=== PATIENT | female | born 1975 | race Caucasian/White ===

== ENCOUNTER 2017-02-27 07:03 | Inpatient (IN) | payer OTHER ==
[2017-02-27] MEDS ORDERED: Oxytocin in LR* 20 UNITS/1,000 ML BAG IVPB SCH ×2 (08:00→19:00)
[2017-02-27] MEDS ORDERED: Lidocaine 1% MPF* 2 ML VIAL ONE (08:10)
[2017-02-27] MEDS: Labetalol TAB* 200 MG PO SCH ×2 (08:21→21:10)
[2017-02-27 08:55] LABS: Hematocrit 36 % (35-47); Hemoglobin 11.9 g/dl (12.0-16.0); Mean Corpuscular HGB Conc 33 g/dl (31-36); Mean Corpuscular Hemoglobin 31 pg (27-31); Mean Corpuscular Volume 92 fL (80-97); Mean Platelet Volume 9 um3 (7.4-10.4); Red Blood Count 3.87 10^6/ul (4.0-5.4); Red Cell Distribution Width 15 % (10.5-15); White Blood Count 9.8 10^3/ul (3.5-10.8)
[2017-02-27] MEDS ORDERED: Acetaminophen TAB* 325 MG PO PRN (18:42)
[2017-02-27] MEDS ORDERED: Witch Hazel PAD* JAR TOPICAL PRN (18:42)
[2017-02-27] MEDS ORDERED: Glycerin ADULT SUPP PR PRN (18:42)
[2017-02-27] MEDS ORDERED: Dibucaine 1% 28.35 GM TUBE PR PRN (18:42)
[2017-02-28] MEDS: Ibuprofen TAB* 600 MG PO PRN ×2 (01:38→09:41)
[2017-02-28 07:48] LABS: Hematocrit 33 % (35-47); Hemoglobin 11.2 g/dl (12.0-16.0); Mean Corpuscular HGB Conc 34 g/dl (31-36); Mean Corpuscular Hemoglobin 31 pg (27-31); Mean Corpuscular Volume 91 fL (80-97); Mean Platelet Volume 9 um3 (7.4-10.4); Red Blood Count 3.64 10^6/ul (4.0-5.4); Red Cell Distribution Width 15 % (10.5-15); White Blood Count 13.7 10^3/ul (3.5-10.8)
[2017-02-28 08:09] VITALS: BP 153/83
[2017-02-28] MEDS ORDERED: Ferrous Gluconate TAB* 324 MG TAB PO SCH (09:00)
[2017-02-28] MEDS: Simethicone CHEW TAB* 80 MG PO SCH (09:26)
[2017-02-28] MEDS: Labetalol TAB* 200 MG PO SCH (09:40)
[2017-02-28] MEDS: Docusate CAP* 100 MG PO SCH ×2 (09:40→10:09)
== END 2017-02-28 19:20 | disposition home or self-care (01) | DRG 560 ==
LOC: MCHOBOUT 07:03 → MCHOB 07:55
PROVIDERS: ADMIT Obstetrics & Gynecology; ATTEND Obstetrics & Gynecology
PROC: 3E033VJ Introduction of Other Hormone into Peripheral Vein, Percutaneous Approach (ICD-10-PCS; principal; 2017-02-27)
PROC: 10E0XZZ Delivery of Products of Conception, External Approach (ICD-10-PCS; 2017-02-27)
PROC: 4A1HX4Z Monitoring of Products of Conception, Cardiac Electrical Activity, External Approach (ICD-10-PCS; 2017-02-27)
DX: O16.4 Unspecified maternal hypertension, complicating childbirth (principal); D68.51 Activated protein C resistance; O99.12 Other diseases of the blood and blood-forming organs and certain disorders involving the immune mechanism complicating childbirth; O09.523 Supervision of elderly multigravida, third trimester; Z3A.38 38 weeks gestation of pregnancy; Z37.0 Single live birth
CPT/HCPCS: 36415; 85025; 86850; 86870; 86880; 86900; 86901; A9270-GY

== ENCOUNTER 2019-10-09 06:06 | Day surgery (SDC) | payer OTHER ==
[~2019-10-09 06:06] MED LIST: Buffered Lidocaine 1% SYRIN* 1 ML/SYRINGE INTRADERM ONE; Lactated Ringers 1000 ML Bag* 1,000 ML IV SCH
[2019-10-09] MEDS ORDERED: Buffered Lidocaine 1% SYRIN* 1 ML/SYRINGE INTRADERM ONE (06:23)
[2019-10-09] MEDS ORDERED: Bupivacaine 0.25% EPI 200,000* 30 ML SDV ONE (06:54)
[2019-10-09] MEDS ORDERED: Lidocaine 2% PF * 5 ML VIAL ONE (08:21)
[2019-10-09] MEDS ORDERED: Propofol* 10 MG/ML 20 ML BTL ONE (08:21)
[2019-10-09] MEDS ORDERED: fentaNYL* 50 MCG/ML 2 ML VIAL (100 MCG VIAL) ONE ×2 (08:22→10:03)
[2019-10-09] MEDS ORDERED: Midazolam* 1 MG/ML 2 ML VIAL (2 MG) ONE (08:22)
[2019-10-09] MEDS ORDERED: Rocuronium* 10 MG/ML VIAL ONE (09:06)
[2019-10-09] MEDS ORDERED: Ondansetron INJ* 2 MG/ML VIAL ONE (09:10)
[2019-10-09] MEDS ORDERED: Neostigmine Methylsulfate* 3 MG/3 ML SYRINGE ONE (09:33)
[2019-10-09] MEDS ORDERED: Atropine 1MG/ML INJ* 1 ML VIAL ONE (09:56)
[2019-10-09] MEDS ORDERED: Acetaminophen TAB* 325 MG PO PRN (09:59)
[2019-10-09] MEDS ORDERED: Naloxone* 0.4 MG/ML 1 ML VIAL IV PRN (09:59)
[2019-10-09] MEDS ORDERED: Metoclopramide IV* 5 MG/ML 2 ML VIAL IV PRN (09:59)
[2019-10-09] MEDS ORDERED: oxyCODONE TAB* 5 MG TAB PO PRN (09:59)
[2019-10-09] MEDS: fentaNYL* 50 MCG/ML 2 ML VIAL (100 MCG VIAL) IV PRN ×2 (10:04→10:26)
[2019-10-09] MEDS ORDERED: oxyCODONE TAB* 5 MG TAB ONE (10:50)
[2019-10-09 11:51] VITALS: BP 128/83
--- NOTE | 2019-10-09 14:00 | OP ---
OPERATIVE REPORT: DATE OF OPERATION: 10/09/19 DATE OF : 73 SURGEON: Jostin Izaguirre MD ANESTHESIA: General endotracheal tube. PRE-OP DIAGNOSIS: Desires permanent sterilization. POST-OP DIAGNOSIS: Desires permanent sterilization. OPERATIVE PROCEDURE: Laparoscopic bilateral tubal ligation. ESTIMATED BLOOD LOSS: Minimal. SPECIMEN: Includes none. FINDINGS: Include normal uterus, tubes, and ovaries. DESCRIPTION OF PROCEDURE: The patient identified, procedure identified as a laparoscopic tubal inter ruption. The patient was taken to the operating room, prepped and draped in the usual fashion in the dorsal lithotomy position under general anesthesia. An infraumbilical incision was made and a Veres s needle placed through this. The abdomen was insufflated to 15 mmHg. The Veress needle was removed and a trocar was inserted. Trocar was removed from the sheath and laparoscope inserted. The above findings were noted. A second trocar was placed 2 cm above the pubic symphysis in the midline under direct visualization. The [facility] [employer] bipolar cautery was inserted. The right fallopian tube was gra sped in its mid portion, followed out to its fimbriated ends and fulgurated x3. Same procedure was c arried on the left. Some care was taken to fulgurate the fimbriated ends on both sides. All instrum ents removed from the abdomen. The abdomen was deflated of CO2. All sponge and instrument counts we re correct and the skin was closed with skin glue. Sponge and sponge sticks removed from the vagina and the patient returned to recovery room in stable condition. [id number]/[facility] #: [id number]
== END 2019-10-09 12:03 | disposition home or self-care (01) ==
LOC: OR 06:06
PROVIDERS: ATTEND Obstetrics & Gynecology
DX: Z30.2 Encounter for sterilization (principal); I10 Essential (primary) hypertension; Z88.8 Allergy status to other drugs, medicaments and biological substances
CPT/HCPCS: 81025; A9270-GY; J0461; J2250; J2405; J2704; J2710; J3010